=== PATIENT | female | born 1960 | race Caucasian/White ===

== ENCOUNTER → 2020-04-23 10:44 | Outpatient (BNVA) | payer MEDICARE, SELFPAY | PROVIDERS: Family Provider Nurse Practitioner; PCP Nurse Practitioner; Visit Provider Nurse Practitioner | DX: M25.571 Pain in right ankle and joints of right foot (principal); M77.9 Enthesopathy, unspecified | CPT/HCPCS: 73610 ==

== ENCOUNTER → 2020-05-07 11:16 | Outpatient (BNVA) | payer MEDICARE, SELFPAY | PROVIDERS: Family Provider Nurse Practitioner; PCP Nurse Practitioner; Visit Provider Podiatrist Foot & Ankle Surgery | DX: S92.251A Displaced fracture of navicular [scaphoid] of right foot, initial encounter for closed fracture (principal); M77.31 Calcaneal spur, right foot; X58.XXXA Exposure to other specified factors, initial encounter | CPT/HCPCS: 73610 ==

== ENCOUNTER → 2021-08-27 11:28 | Outpatient (BNVA) | payer MEDICARE, SELFPAY | PROVIDERS: Family Provider Nurse Practitioner; PCP Family Medicine Adult Medicine; Visit Provider Family Medicine Adult Medicine | DX: E78.5 Hyperlipidemia, unspecified (principal); I10 Essential (primary) hypertension; R94.4 Abnormal results of kidney function studies; E66.9 Obesity, unspecified; K21.9 Gastro-esophageal reflux disease without esophagitis; R11.0 Nausea; F41.9 Anxiety disorder, unspecified; F32.A Depression, unspecified; Z13.6 Encounter for screening for cardiovascular disorders | CPT/HCPCS: 80053; 80061; 84443; 85025 ==

== ENCOUNTER → 2022-01-22 11:29 | Outpatient (BNVA) | payer MEDICARE, SELFPAY | PROVIDERS: Family Provider Nurse Practitioner; PCP Family Medicine Adult Medicine; Visit Provider Surgery | DX: K92.1 Melena (principal); R19.4 Change in bowel habit; R10.9 Unspecified abdominal pain; K92.0 Hematemesis; R15.9 Full incontinence of feces; R15.2 Fecal urgency | CPT/HCPCS: 99203 ==

== ENCOUNTER 2022-02-27 08:16 | Outpatient (CLI) | payer MEDICARE, SELFPAY ==
--- NOTE | 2022-02-27 08:30 | US_ITS ---
WS: [id number] RIGHT UPPER QUADRANT ULTRASOUND HISTORY: abd pain COMPARISON: CT 02/19/2006 Liver: 18.7 cm in length. Liver is mildly enlarged with very mild coarsened echotexture. Lobulated cy st in the LEFT lobe with a few low-level echoes measures 3.2 x 4.3 x 3.0 cm. There was a cyst in this location on the CT from 2005. This cyst has slightly increased in size. There is a very small nodula r component to this cyst. Portal Vein: Normal hepatopetal flow with monophasic waveform. Gallbladder: Normally distended gallbladder with stones. No evidence for acute cholecystitis. CBD: 0.3 cm Pancreas: Normal size and echogenicity. Right kidney: 10.6 cm in length. Normal size and echogenicity. No hydronephrosis or mass. Aorta and IVC: Unremarkable abdominal aorta and IVC. No ascites. US/US gall bladder [id number] IMPRESSION: 1. Cholelithiasis without acute cholecystitis. 2. Lobulated complex cyst in the LEFT lobe of the liver. Cyst has been present since 2005 but has increased in size. Due to the complex appearance and the no dular component recommend follow-up ultrasound in 3-4 months to confirm long-te rm stability.
== END 2022-02-27 08:17 | disposition home or self-care (01) ==
PROVIDERS: PCP Family Medicine Adult Medicine; Visit Provider Surgery
DX: K80.20 Calculus of gallbladder without cholecystitis without obstruction (principal); K76.89 Other specified diseases of liver
CPT/HCPCS: 76705

== ENCOUNTER → 2022-03-12 09:28 | Outpatient (BNVA) | payer MEDICARE, SELFPAY | PROVIDERS: PCP Family Medicine Adult Medicine; Visit Provider Surgery | DX: Z09 Encounter for follow-up examination after completed treatment for conditions other than malignant neoplasm (principal); R10.9 Unspecified abdominal pain | CPT/HCPCS: 99213 ==

== ENCOUNTER → 2023-09-02 13:44 | Outpatient (BNVA) | payer MEDICARE, SELFPAY | PROVIDERS: PCP Family Medicine Adult Medicine; Visit Provider Family Medicine Adult Medicine | DX: R07.89 Other chest pain (principal) | CPT/HCPCS: 71046 ==

== ENCOUNTER → 2023-09-17 08:44 | Outpatient (BNVA) | payer MEDICARE, SELFPAY | PROVIDERS: PCP Family Medicine Adult Medicine; Referring Provider Family Medicine Adult Medicine; Visit Provider Physician Assistant | DX: S22.000A Wedge compression fracture of unspecified thoracic vertebra, initial encounter for closed fracture (principal); X58.XXXA Exposure to other specified factors, initial encounter; M54.6 Pain in thoracic spine | CPT/HCPCS: 72072; 99203 ==

== ENCOUNTER 2023-10-14 09:17 | Outpatient (CLI) | payer MEDICARE, SELFPAY ==
--- NOTE | 2023-10-14 09:30 | MR_ITS ---
WS: [id number] MRI THORACIC SPINE WITHOUT CONTRAST TECHNIQUE: Sagittal T1, T2 and STIR imaging. Axial T2 imaging. Noncontrast imaging obtained. CLINICAL INFORMATION: back pain COMPARISON: None. FINDINGS: Mild thoracic curve. Moderate thoracic kyphosis. Chronic anterior wedging at T10 and T11. No acute co mpression fractures. No edema. Cord signal is normal. Shallow RIGHT paracentral protrusion T8-9 with slight indentation on the RIGHT ventral thoracic cord. Mild central canal stenosis. Tiny shallow central protrusions T7-T8,T9-T10, T10-T11, and T11-12. Mod erate facet arthropathy lower thoracic spine. Normal caliber thoracic aorta. Adrenal glands are normal. Small esophageal hiatal hernia. Normal para vertebral soft tissues. IMPRESSION: 1. Mild thoracic curve. Moderate thoracic kyphosis. 2. No acute compression fractures. 3. Cord signal is normal. 4. RIGHT paracentral protrusion T8-T9 with slight indentation on the thoracic cord with mild central canal stenosis. 5. Additional smaller shallow protrusions described above. 6. Moderate facet arthropathy lower thoracic spine.
== END 2023-10-14 09:18 | disposition home or self-care (01) ==
LOC: RAD 09:18
PROVIDERS: PCP Family Medicine Adult Medicine; Visit Provider Physician Assistant
DX: M51.24 Other intervertebral disc displacement, thoracic region (principal); M54.6 Pain in thoracic spine
CPT/HCPCS: 72146

== ENCOUNTER → 2023-11-19 14:40 | Outpatient (BNVA) | payer MEDICARE, SELFPAY | PROVIDERS: PCP Family Medicine Adult Medicine; Visit Provider Orthopaedic Surgery | DX: M54.6 Pain in thoracic spine (principal); G89.29 Other chronic pain | CPT/HCPCS: 99214 ==

== ENCOUNTER → 2024-02-08 10:26 | Outpatient (BNVA) | payer MEDICARE, SELFPAY | PROVIDERS: PCP Family Medicine Adult Medicine; Visit Provider Family Medicine | DX: F32.1 Major depressive disorder, single episode, moderate (principal); F41.8 Other specified anxiety disorders; F41.9 Anxiety disorder, unspecified; J32.9 Chronic sinusitis, unspecified; I10 Essential (primary) hypertension; H91.90 Unspecified hearing loss, unspecified ear; E78.5 Hyperlipidemia, unspecified; M54.6 Pain in thoracic spine; G89.29 Other chronic pain; G43.711 Chronic migraine without aura, intractable, with status migrainosus; K21.9 Gastro-esophageal reflux disease without esophagitis; J30.1 Allergic rhinitis due to pollen; F43.21 Adjustment disorder with depressed mood; F12.91 Cannabis use, unspecified, in remission | CPT/HCPCS: 80053; 80061; 84439; 84443; 85025 ==

== ENCOUNTER → 2024-06-15 15:28 | Outpatient (BNVA) | payer MEDICARE, SELFPAY | PROVIDERS: PCP Family Medicine Adult Medicine; Visit Provider Nurse Practitioner | DX: S83.511A Sprain of anterior cruciate ligament of right knee, initial encounter; X58.XXXA Exposure to other specified factors, initial encounter; S83.249A Other tear of medial meniscus, current injury, unspecified knee, initial encounter; S83.206A Unspecified tear of unspecified meniscus, current injury, right knee, initial encounter; W19.XXXA Unspecified fall, initial encounter; M23.51 Chronic instability of knee, right knee; M25.562 Pain in left knee | CPT/HCPCS: 73560; 73565; 99204 ==

== ENCOUNTER 2024-06-16 14:11 | Outpatient (CLI) | payer MEDICARE, SELFPAY ==
--- NOTE | 2024-06-16 14:30 | MR_ITS ---
WS: [id number] MRI RIGHT KNEE HISTORY: meniscus tear COMPARISON: 08/27/2017 Anterior cruciate ligament: Increased T2 signal in the ACL. There is a small amount of fluid surround ing the ACL but no full-thickness tear. Posterior cruciate ligament: Intact. Medial collateral ligament: Intact. Posterior lateral corner structures: Small amount of fluid adjacent to the posterior lateral corner s tructures but similar to the study from 2017. Medial menisci: Intrasubstance degeneration in the posterior meniscus. There is significant fraying a long the superior articular surface. Anterior horn is normal. Lateral meniscus: Intact. Normal signal, size and shape. Extensor mechanism: Distal quadriceps tendon and patellar tendons are intact. Fluid and soft tissue: Small to moderate suprapatellar joint effusion. There is a small amount of natalie ma also surrounding the condyles. Large lobulated Velasquez's cyst. There is fluid extending inferiorly f rom the Velasquez's cyst along the medial head of the gastrocnemius suggesting a partial tear or rupture of the Velasquez's cyst. Osseous and articular structures: Patellofemoral compartment: Marked narrowing lateral patellofemoral articulation. Loss of cartilage w ith subchondral cystic changes. Moderate progression of chondromalacia. Cartilage is better preserved medially. Medial compartment: Very mild narrowing of the medial compartment. Mild progression of the previously described joint space narrowing and chondromalacia. There is a full-thickness cartilage defect on th e weightbearing surface of the femoral condyle. There is an underlying osteochondral lesion with loss of cartilage. The loss of cartilage in the cartilage defect are at the same level of the posterior m edial meniscal signal abnormality. Additional osteochondral changes in the anterior medial femoral co ndyle which is nonweightbearing. Lateral compartment: Very mild narrowing and chondromalacia. Subchondral marrow edema with loss of ca rtilage anteriorly has progressed since the prior study from 2017. MR/MR knee RT wo con* [id number] IMPRESSION: 1. Progression of joint space narrowing and osteochondral lesions involving th e lateral patellofemoral joint space. 2. Mild ACL sprain. 3. Medial compartment: Progression of joint space narrowing and chondromalacia . Full-thickness cartilage defect on the weightbearing surface. Additional oste ochondral disease along the nonweightbearing anterior femoral condyle. 4. Fraying involving the free edge in the superior articular surface of the po sterior medial meniscus. 5. Lateral compartment: Mild progression of subchondral marrow edema and chond romalacia nonweightbearing surface of the anterior femoral condyle. 6. Small to moderate suprapatellar joint effusion. 7. Large lobulated Velasquez's cyst with possible partial rupture as there is flui d extending along the medial head of the gastrocnemius.
== END 2024-06-16 14:12 | disposition home or self-care (01) ==
LOC: RAD 14:13
PROVIDERS: PCP Family Medicine Adult Medicine; Visit Provider Family Medicine
DX: S83.249A Other tear of medial meniscus, current injury, unspecified knee, initial encounter (principal); M94.261 Chondromalacia, right knee; M93.261 Osteochondritis dissecans, right knee; M71.21 Synovial cyst of popliteal space [Baker], right knee; X58.XXXA Exposure to other specified factors, initial encounter
CPT/HCPCS: 73721

== ENCOUNTER 2025-07-13 11:28 | Outpatient (CLI) | payer MEDICARE, SELFPAY ==
--- NOTE | 2025-07-13 11:40 | MM_ITS ---
WS: [id number] BILATERAL SCREENING DIGITAL TOMOSYNTHESIS MAMMOGRAM WITH CAD HISTORY: screening COMPARISON: None available. Bilateral CC and MLO views with tomosynthesis and synthetic mammography submitted. Computer aided detection analyzed. Breast composition: There are scattered areas of fibroglandular density. No suspicious masses, microcalcifications or architectural distortion. Benign lymph nodes in the upper outer quadrants of each breast. There are a few benign calcifications within the LEFT breast. MM/MM scr tomosynthesis [id number] IMPRESSION: BI-RADS: 2 - Benign. FOLLOW UP: 1 Year Follow-up
== END 2025-07-13 11:29 | disposition home or self-care (01) ==
LOC: RAD 11:29
PROVIDERS: PCP Family Medicine; Visit Provider Family Medicine
DX: Z12.31 Encounter for screening mammogram for malignant neoplasm of breast (principal); N63.11 Unspecified lump in the right breast, upper outer quadrant; R92.323 Mammographic fibroglandular density, bilateral breasts; R92.1 Mammographic calcification found on diagnostic imaging of breast
CPT/HCPCS: 77063; 77067